=== PATIENT | female | born 1990 | race Caucasian/White ===

== ENCOUNTER 2017-07-27 06:07 | Emergency (ER) | payer OTHER ==
[2017-07-27 07:21] LABS: #Basophils 0.1 thou/uL (0.0-0.2); #Eosinphils 0.4 thou/uL (0.0-0.7); #Lymphocytes 4.1 thou/uL (1.20-3.40); #Monocytes 0.6 thou/uL (0.11-0.59); #Neutrophils 7.8 thou/uL (1.40-6.50); %Basophils 0.7 % (0.0-1.0); %Eosinophils 3.3 % (0.0-10.0); %Lymphocytes 31.9 % (21.0-51.0); %Monocytes 4.5 % (0.0-10.0); %Neutrophils 59.7 % (42.0-75.0); Bilirubin Negative (Negative); Blood, Urine Moderate (Negative); Clarity CLEAR (Clear); Glucose, Urine (Dipstick) Negative (Negative); Hemoglobin 13.6 g/dL (12.0-16.0); Leukocyte Negative (Negative); Mean Corpuscular HGB CONC 33.2 g/dL (32.0-36.0); Mean Corpuscular Hemoglobin 29.7 pg (27.0-31.0); Mean Corpuscular Volume 89.3 fl (81.0-99.0); Nitrite Negative (Negative); Platelet Count 386 thou/uL (130-400); Protein, Urine (Dipstick) Negative (Neg-Trace); RBC Distribution Width 12.8 % (11.5-14.5); Red Blood Cell (RBC) Count 4.58 mill/uL (4.20-5.40); Specific Gravity, Urine 1.009 (1.002-1.036); Urobilinogen 0.2 mg/dL (0.2-1.0)
[2017-07-27 07:23] LABS: Bacteria/HPF 1+ HPF (None Seen); Hyaline Casts/LPF 0-3 HYALINE CAST LPF (0-3 Hyaline); Pregnancy Test - Urine (BHCG) Negative (Negative); Pregu Control Background? CLEAR/WHITE (CLR/WHITE); Pregu Control Bar Appear? YES (CONTROL BAR); RBC/HPF 0-3 HPF (0-3); Specific Gravity 1.009 (1.002-1.036); WBC/HPF 0-3 HPF (0-3)
[2017-07-27 07:49] LABS: ALT (SGPT) 9 U/L (8-55); AST (SGOT) 11 U/L (5-34); Albumin 4.2 g/dL (3.5-5.0); Alkaline Phosphatase 50 U/L (40-150); Anion Gap 12 mmol/L (10-20); BUN (Urea Nitrogen) 9 mg/dL (7.0-18.7); Bilirubin, Total 0.2 mg/dL (0.2-1.2); Calc. Creatinine Clearance 0 mL/min (70-130); Calcium 9.3 mg/dL (7.8-10.44); Carbon Dioxide 23 mmol/L (22-29); Chloride 104 mmol/L (98-107); Estimated GFR-MDRD 78; Globulin 3.1 g/dL (2.4-3.5); Glucose 101 mg/dL (70-105); Lipase 48 U/L (8-78); Potassium 3.7 mmol/L (3.5-5.1); Protein, Total 7.3 g/dL (6.0-8.3); Sodium 135 mmol/L (136-145)
--- NOTE | 2017-07-27 08:16 | ULT ---
GALLBLADDER ULTRASOUND: HISTORY: Right upper quadrant pain. COMPARISON: None. TECHNIQUE: Utilizing a Multihertz transducer, sonographic imaging of the right upper quadrant is performed in th e longitudinal and transverse plane. FINDINGS: Pancreas is obscured by bowel gas. Hepatic parenchyma has a normal echotexture. No hepatic masses or intrahepatic dilatation. Contour of the hepatic margin is maintained. Right hepatic lobe measures 14.1 cm. Main portal vein is patent. Appropriate direction of flow. Within the lumen of the gallbladder, there are mobile echogenic foci compatible with gallstones. The re are additional gallstones within the neck of the gallbladder which do not appear to be mobile. Ga llbladder wall thickness at the upper limits of normal. No pericholecystectomy fluid. Negative Murp hy's sign. The right kidney has a normal cortical echotexture. No hydronephrosis. The right kidney measures 3. 6 x 10.3 x 4.3 cm. Common bile duct diameter is limited in evaluation. IMPRESSION: 1. Non-mobile calculus in the neck of the gallbladder. If there is concern for cholecystitis, consi vicki HIDA scan. 2. Inadequate visualization of common bile duct. POS: [facility]
== END 2017-07-27 08:55 | disposition home or self-care (01) ==
LOC: ERS 06:07
DX: K80.20 Calculus of gallbladder without cholecystitis without obstruction (principal); F17.210 Nicotine dependence, cigarettes, uncomplicated
CPT/HCPCS: 76705; 80053; 81003; 81015; 81025; 83690; 85025

== ENCOUNTER 2017-08-09 16:05 | Outpatient (CLI) | payer OTHER ==
[2017-08-09 17:26] LABS: #Basophils 0.1 thou/uL (0.0-0.2); #Eosinphils 0.3 thou/uL (0.0-0.7); #Lymphocytes 3.5 thou/uL (1.20-3.40); #Monocytes 0.3 thou/uL (0.11-0.59); #Neutrophils 6.2 thou/uL (1.40-6.50); %Basophils 0.8 % (0.0-1.0); %Eosinophils 2.8 % (0.0-10.0); %Lymphocytes 33.5 % (21.0-51.0); %Monocytes 3.3 % (0.0-10.0); %Neutrophils 59.6 % (42.0-75.0); Hemoglobin 13.7 g/dL (12.0-16.0); Mean Corpuscular HGB CONC 33.4 g/dL (32.0-36.0); Mean Corpuscular Hemoglobin 30.7 pg (27.0-31.0); Mean Corpuscular Volume 91.8 fl (81.0-99.0); Mean Platelet Volume 7.6 fL (7.4-10.4); Platelet Count 371 thou/uL (130-400); RBC Distribution Width 12.8 % (11.5-14.5); Red Blood Cell (RBC) Count 4.46 mill/uL (4.20-5.40); White Blood Cell (WBC) Count 10.5 thou/uL (4.8-10.8)
[2017-08-09 17:46] LABS: ALT (SGPT) 9 U/L (8-55); AST (SGOT) 12 U/L (5-34); Albumin 4.3 g/dL (3.5-5.0); Alkaline Phosphatase 50 U/L (40-150); Anion Gap 13 mmol/L (10-20); BUN (Urea Nitrogen) 6 mg/dL (7.0-18.7); Bilirubin, Total 0.4 mg/dL (0.2-1.2); Calc. Creatinine Clearance 0 mL/min (70-130); Calcium 9.2 mg/dL (7.8-10.44); Carbon Dioxide 22 mmol/L (22-29); Chloride 108 mmol/L (98-107); Estimated GFR-MDRD 87; Globulin 3.2 g/dL (2.4-3.5); Glucose 78 mg/dL (70-105); Potassium 3.8 mmol/L (3.5-5.1); Protein, Total 7.5 g/dL (6.0-8.3); Sodium 139 mmol/L (136-145)
[2017-08-09 18:21] LABS: BHCG - Serum Negative (NEGATIVE); Pregs Control Background? CLEAR/WHITE (CLR/WHITE); Pregs Control Bar Appear? YES (CONTROL BAR)
== END 2017-08-09 16:06 | disposition home or self-care (01) ==
LOC: LABBT 16:05
PROVIDERS: ATTEND Surgery
DX: Z01.812 Encounter for preprocedural laboratory examination (principal); K80.20 Calculus of gallbladder without cholecystitis without obstruction
CPT/HCPCS: 80053; 84703; 85025

== ENCOUNTER 2017-08-17 06:31 | Day surgery (SDC) | payer OTHER ==
[2017-08-09 16:15] VITALS: BMI 29.0
[2017-08-17] MEDS ORDERED: Bupivacaine/Epinephrine 0.25% 30 ML VIAL ONE (06:45)
[2017-08-17] MEDS ORDERED: Iothalamate Meglumine 60% 50 ML VIAL FS ONE (06:45)
[2017-08-17] MEDS ORDERED: CEFAZOLIN/Water 2 GM/20 ML SYRINGE ONE (07:16)
[2017-08-17] MEDS ORDERED: Fentanyl 250 MCG/5 ML VIAL ONE (08:01)
[2017-08-17] MEDS ORDERED: Midazolam HCl 2 mg/2 ml Vial ONE (08:18)
[2017-08-17] MEDS ORDERED: Promethazine HCl 25 MG/ML VIAL ONE (10:46)
[2017-08-17] MEDS ORDERED: Fentanyl 100 MCG/2 ML VIAL ONE (10:54)
--- NOTE | 2017-08-17 11:19 | RAD ---
INTRANOPERATIVE CHOLANGIOGRAM: Date: 08-17-17 History: Laparoscopic cholecystectomy. FINDINGS: A single intraoperative image is provided. Clips are seen in the region of the gallbladder fossa. Par tially opacified nondilated intrahepatic biliary ducts are unremarkable. No discrete filling defect i s seen in the CBD. There is contrast media within the duodenum. IMPRESSION: No discrete filling defect seen within the opacified portions of the biliary tree. POS: [facility]
[2017-08-17] MEDS ORDERED: Ondansetron HCl/PF 4 MG/2 ML Vial ONE (14:09)
[2017-08-17] MEDS ORDERED: Lidocaine 1% PF 5 ML VIAL ONE (14:09)
[2017-08-17] MEDS ORDERED: Ketorolac Tromethamine 30 MG/ML VIAL ONE (14:09)
[2017-08-17] MEDS ORDERED: Glycopyrrolate 0.2 MG/ML 5 ML SYRINGE ONE (14:09)
[2017-08-17] MEDS ORDERED: PROPOFOL 200 MG/20 ML VIAL ONE (14:09)
[2017-08-17] MEDS ORDERED: Dexamethasone 20 MG/5 ML VIAL ONE (14:09)
[2017-08-17] MEDS ORDERED: PHENYLEPHRINE-NS 100 MCG/ML 10 ML SYRINGE ONE (14:09)
--- NOTE | 2017-08-18 10:42 | PDOC.OP ---
Operative Note - Operative Note Operative Note: PROCEDURE: Laparoscopic cholecystectomy with intraoperative cholangiogram SURGEON: Luly Felder M.D. DATE OF PROCEDURE: 08/17/2017 PREOPERATIVE DIAGNOSIS: Cholelithiasis and cholecystitis, possible choledocholithiasis: POSTOPERATIVE DIAGNOSIS: Cholelithiasis and cholecystitis HISTORY: Patient is a 27-year-old woman with intermittent right upper quadrant pain which has been increasing in severity and frequency. An ultrasound done in the ER showed a gallstone which appeared to be impacted in the neck of her gallbladder. Her LFTs were normal but her common bile duct was not well visualized so recommendation was made to proceed with laparoscopic cholecystectomy with intraoperative cholangiogram. FINDINGS: White walled gallbladder with stone impacted in the neck. Normal intraoperative cholangiogram. Omental adhesions in the upper abdomen related to the patient's previous surgery. PROCEDURE IN DETAIL: After informed consent was obtained and appropriate preoperative antibiotics were administered, the patient was taken to the operating room and placed in the supine position and general endotracheal anesthesia was administered. The stomach was decompressed with an OG tube and the abdomen was prepped and draped in standard sterile fashion. Local anesthesia was infused to the skin and subcutaneous tissues at the umbilical level. A transverse skin incision was made. The fascia was elevated and a Veress needle was placed into the abdominal cavity without difficulty. Opening pressure was less than 5 and carbon dioxide gas easily insufflated to an intra- abdominal pressure of 15, which the patient tolerated well. The Veress needle was withdrawn and a Kell port advanced under direct vision. The abdominal cavity was carefully examined. There was no evidence of Veress needle or of trocar injury. The patient had fairly extensive omental adhesions the upper abdomen along the side of her transverse abdominal incision from her pyloromyotomy as an infant. No bowel was seen to be involved in these adhesions. The right lateral trocar was placed under direct laparoscopic vision and the omental adhesions taken down under direct laparoscopic vision through the avascular plane allowing access to the right upper quadrant. Local anesthesia was infused to the skin and subcutaneous tissues at the epigastric and right upper quadrant sites and trocars were placed under direct vision of the laparoscope. The fundus of the gallbladder was grasped and retracted superiorly. The patient had some omental adhesions to the medial edge of the gallbladder and the liver edge which were again felt to be postoperative rather than inflammatory in nature. These were carefully taken down through their avascular plane and the entire gallbladder exposed. The infundibulum was grasped and retracted laterally. The stone was seen to be impacted in the neck of the gallbladder. The serosa was stripped inferiorly at the level of the neck of the gallbladder exposing the cystic duct which was traced clearly to its insertion in the gallbladder. This was dissected free circumferentially and the cystic duct was clipped at the level of the neck of the gallbladder. An incision was made in the cystic duct inferior to the clip and the cystic duct was palpated with no stones palpable. Clear bile was seen to flow from the cystic duct incision. A cholangiogram catheter was introduced and placed into the cystic duct and secured. A cholangiogram was obtained which showed an adequate length of cystic duct. There was normal filling of the common bile duct with free flow of contrast into the duodenum. There was normal retrograde flow into the common hepatic duct beyond the level of the bifurcation without filling defects. The cholangiogram catheter was removed and the cystic duct clipped below the incision in the cystic duct. The cystic duct was divided between these clips and the previously placed clip. The cystic artery dissected free circumferentially and was clipped and divided as well. The gallbladder was then dissected free of the gallbladder bed using hook electrocautery. Prior to complete removal of the gallbladder from the gallbladder bed, the area of the cystic duct and artery stumps was examined. The clips were in good position completely across these structures and there was no bleeding and no leakage of bile. The gallbladder was then placed into an EndoCatch bag and drawn out through the epigastric incision. The epigastric trocar was replaced and the operative site easily irrigated to clear. There was no significant bleeding or spillage of bile. The epigastric trocar was removed and the fascia closed under direct laparoscopic vision with a 0 Vicryl suture on a GraNee needle in a [id number] manner with excellent technical result. The right upper quadrant and right lateral abdominal trocars were removed and hemostasis verified. Carbon dioxide gas was allowed to desufflate through the umbilical trocar which was then removed. The skin incisions were closed with 4-0 subcuticular Monocryl sutures and Dermabond dressings were placed. The patient was extubated and taken to the recovery room in good condition. There were no complications. ESTIMATED BLOOD LOSS: Minimal. SPECIMEN : Gallbladder and contents.
== END 2017-08-17 12:25 | disposition home or self-care (01) ==
LOC: SDC 06:31
PROVIDERS: ATTEND Surgery
PROC: BF141ZZ Fluoroscopy of Gallbladder, Bile Ducts and Pancreatic Ducts using Low Osmolar Contrast (ICD-10-PCS; principal; 2017-08-17)
PROC: 0FT44ZZ Resection of Gallbladder, Percutaneous Endoscopic Approach (ICD-10-PCS; principal; 2017-08-17)
DX: K80.10 Calculus of gallbladder with chronic cholecystitis without obstruction (principal); K66.0 Peritoneal adhesions (postprocedural) (postinfection); F17.210 Nicotine dependence, cigarettes, uncomplicated; Z91.048 Other nonmedicinal substance allergy status; Z91.018 Allergy to other foods
CPT/HCPCS: 47532; 88304; 96374; J1100; J1610; J1885; J2001; J2250; J2405; J2550; J2704; J3010; Q9961